=== PATIENT | male | born 1985 | race Caucasian/White ===

== ENCOUNTER → 2017-02-26 | Outpatient (CLI) | payer OTHER ==
[2017-02-26 07:31] LABS: BLOOD UREA NITROGEN 17 mg/dL (7-18)
[2017-02-26 07:42] LABS: ASPARTATE AMINO TRANSFERASE 45 U/L (15-37)
== END | disposition home or self-care (01) ==
LOC: LAB 07:08
PROVIDERS: ATTEND Nurse Practitioner Family
DX: Z13.220 Encounter for screening for lipoid disorders (principal); Z13.29 Encounter for screening for other suspected endocrine disorder; F41.9 Anxiety disorder, unspecified; F90.9 Attention-deficit hyperactivity disorder, unspecified type; R53.83 Other fatigue
CPT/HCPCS: 36415; 80053; 80061; 82306; 84443; 85025

== ENCOUNTER → 2017-03-16 | Outpatient (CLI) | payer OTHER | END | disposition home or self-care (01) | LOC: CFH 09:05 | PROVIDERS: ATTEND Family Medicine | DX: R94.5 Abnormal results of liver function studies (principal); R18.8 Other ascites | CPT/HCPCS: 76705 ==

== ENCOUNTER → 2017-07-04 | Outpatient (CLI) | payer OTHER ==
[2017-07-04 07:26] LABS: HEMOGLOBIN 16.4 g/dL (13.7-18.0); WHITE BLOOD COUNT 12.1 x10^3/uL (3.4-10)
[2017-07-04 07:38] LABS: FERRITIN 307.1 ng/mL (26-388)
== END | disposition home or self-care (01) ==
LOC: LAB 07:00
PROVIDERS: ATTEND Nurse Practitioner Family
DX: R94.5 Abnormal results of liver function studies (principal); D72.829 Elevated white blood cell count, unspecified; R79.89 Other specified abnormal findings of blood chemistry
CPT/HCPCS: 36415; 80074; 82103; 82390; 82728; 82977; 83540; 83550; 84450; 84460; 84466; 85025; 85651; 86038

== ENCOUNTER → 2018-01-17 | Outpatient (CLI) | payer OTHER ==
[2018-01-17 07:34] LABS: ALANINE AMINOTRANSFERASE 72 U/L (12-78); ALBUMIN 4.5 g/dL (3.4-5.0); ANION GAP 11 mmol/L (5-15); CALCIUM 9.3 mg/dL (8.5-10.1); CHLORIDE 102 mmol/L (98-107); CREATININE 0.97 mg/dL (0.7-1.3)
[2018-01-17 07:36] LABS: ALKALINE PHOSPHATASE 58 U/L (45-117); BILIRUBIN,TOTAL 0.8 mg/dL (0.2-1.0); TOTAL PROTEIN 7.9 g/dL (6.4-8.2)
== END | disposition home or self-care (01) ==
LOC: LAB 07:12
PROVIDERS: ATTEND Nurse Practitioner Family
DX: R94.5 Abnormal results of liver function studies (principal)
CPT/HCPCS: 36415; 80053

== ENCOUNTER → 2018-06-06 | Outpatient (CLI) | payer OTHER ==
[2018-06-06 18:12] LABS: CHOL/HDL RATIO 3.1; LDL/HDL RATIO 1.7 (0.5-3.0)
[2018-06-06 18:24] LABS: CREATININE 1.16 mg/dL (0.7-1.3)
[2018-06-06 18:51] LABS: HEMOGLOBIN A1C 5.3 % (4.2-6.3)
[2018-06-06 19:04] LABS: CREATININE CLEARANCE,URINE 151.3 (70.0-140.0)
== END | disposition home or self-care (01) ==
LOC: LAB 06-05 03:05
PROVIDERS: ATTEND Family Medicine
DX: Z00.5 Encounter for examination of potential donor of organ and tissue (principal)
CPT/HCPCS: 36415; 80061; 81050; 82043; 82570; 82575; 82947; 83036; 84156

== ENCOUNTER → 2018-06-16 | Outpatient (CLI) | payer OTHER ==
[2018-06-16 22:58] LABS: MICROSCOPIC NOT IND
== END | disposition home or self-care (01) ==
LOC: LAB 18:50
PROVIDERS: ATTEND Family Medicine
DX: Z01.818 Encounter for other preprocedural examination (principal)
CPT/HCPCS: 81003